=== PATIENT | female | born 1980 | race Two or more races ===

== ENCOUNTER → 2024-05-04 | Outpatient (CLI) | payer MEDICAID, SELFPAY ==
--- NOTE | 2024-05-04 13:00 | XR_ITS ---
Examination: Abdomen sonogram, complete Date and time of exam: May 04, 2024 1340 hours INDICATIONS: Intermittent epigastric pain beginning 5 years ago. Technique: Multiple real-time grayscale transabdominal sonographic images of the abdomen have been obtained. Findings: Absent gallbladder Common bile duct 0.9 cm no stones Pancreatic head 2.4 cm Aorta not enlarged Liver 19.9 cm fatty infiltration no focal liver lesions Normal hepatopedal portal venous flow Patent IVC Right kidney 11.9 x 5.8 x 6.7 cm cortex 1.8 cm Left kidney 11.7 x 5.6 x 7.2 cm cortex 1.8 cm Mild bilateral renal parenchymal scar formation Spleen 11.8 cm IMPRESSION: No common bile duct stones Moderate hepatomegaly fatty liver
== END | disposition home or self-care (01) ==
PROVIDERS: PCP Nurse Practitioner Family; Referring Provider Nurse Practitioner Family; Visit Provider Nurse Practitioner Family
DX: K76.0 Fatty (change of) liver, not elsewhere classified (principal)
CPT/HCPCS: 76700

== ENCOUNTER 2024-07-25 14:28 | Emergency (ER) | payer MEDICAID, SELFPAY ==
[2024-07-25 14:32] VITALS: BMI 41.9
[2024-07-25 14:50] VITALS: BP 153/92; PULSE 64; RESP 20; TEMP 36.7; O2SAT 96
--- NOTE | 2024-07-25 14:59 | XR_ITS ---
Examination: Lumbar spine 3 views Technique one AP lateral coned lateral lower lumbar spine 3 views Exam date and time: July 25, 2024 1522 hrs. Indications: Patient fell 2 days ago with injury to the lower back, lower back pain radiating down the right leg. Findings: No acute lumbar fracture Moderate to advanced disc narrowing L5-S1 No spondylolisthesis Impression: No acute lumbar fracture
[2024-07-25] MEDS: KETOROLAC INJ 60 MG/2 ML VIAL 30 MG IM (15:05)
--- NOTE | 2024-07-25 16:32 | PD.EDBACK ---
ED Back Injury Pain RME/HPI General Chief Complaint: Back Pain/Injury Stated Complaint: BACK PAIN RADIATING DOWN RIGHT LEG AFTER FALL Time Seen by Provider: 07/25/24 14:46 Source: patient Arrival date/time: 07/25/24 14:28 44-year-old female with a history of type 2 diabetes, hypertension presents to the emergency room with a chief complaint of lower back pain that radiates down her right leg Mode of arrival: ambulatory Limitations: no limitations Related Data Home Medications ?Medication ?Instructions ?Recorded ?Confirmed amlodipine 10 mg tablet 10 mg PO QDAY 06/14/22 08/21/22 atorvastatin 20 mg tablet 20 mg PO QDAY 06/14/22 08/21/22 diclofenac sodium 1 % topical gel 4 g topical QID 06/14/22 08/21/22 docusate sodium 100 mg capsule 100 mg PO BID PRN Constipation 06/14/22 08/21/22 ferrous sulfate 325 mg (65 mg 325 mg PO QDAY 06/14/22 08/21/22 iron) tablet hydrochlorothiazide 25 mg tablet 25 mg PO QDAY 06/14/22 08/21/22 hydrocodone 5 mg-acetaminophen 325 1 tab PO Q6H PRN Pain 06/14/22 08/21/22 mg tablet metoprolol succinate 100 mg 100 mg PO QDAY 06/14/22 08/21/22 tablet,extended release 24 hr nitroglycerin 0.4 mg sublingual 0.4 mg buccal Q5MIN PRN Chest Pain 06/14/22 08/21/22 tablet omeprazole 40 mg capsule,delayed 40 mg PO QAM 06/14/22 08/21/22 release ondansetron HCl 4 mg tablet 4 mg PO TID PRN Nausea 06/14/22 08/21/22 semaglutide 1 mg/dose (4 mg/3 mL) 1 mg subcut QWEEK 06/14/22 08/21/22 subcutaneous pen injector (Ozempic) aspirin 81 mg tablet,delayed 81 mg PO QDAY 08/21/22 08/21/22 release cyclobenzaprine 10 mg tablet 10 mg PO HS 08/21/22 08/21/22 potassium chloride 20 mEq 20 meq PO QDAY 08/21/22 08/21/22 tablet,extended release Previous Rx's ?Medication ?Instructions ?Recorded clonidine HCl 0.1 mg tablet 0.1 mg PO QDAY #30 tabs 03/18/21 hydrocodone 5 mg-acetaminophen 325 1 tab PO BID PRN pain #10 tabs 07/25/24 mg tablet ibuprofen 600 mg tablet 600 mg PO Q8H PRN fever or pain 07/25/24 #20 tabs Allergies Allergy/AdvReac Type Severity Reaction Status Date / Time metformin Allergy Dizziness Verified 07/25/24 14:31 Penicillins Allergy Verified 07/25/24 14:31 semaglutide (From Rybelsus) Allergy Verified 07/25/24 14:31 Review of Systems Review of Systems Systems Reviewed: All systems reviewed, normal except as documented Constitutional Constitutional: Reports system reviewed and no additional complaints, except as documented, Denies fatigue, Denies fever(s), Denies headache(s) and Denies weakness Eyes Eyes: Reports system reviewed and no additional complaints, except as documented, Denies blurry vision and Denies change in vision ENT Ears, Nose, Mouth, and Throat: Reports system reviewed and no additional complaints, except as documented, Denies otalgia, Denies headache(s), Denies nasal congestion, Denies throat swelling and Denies vertigo Cardiovascular Cardiovascular: Reports system reviewed and no additional complaints, except as documented, Denies chest pain, Denies dyspnea and Denies dyspnea on exertion Respiratory Respiratory: Reports system reviewed and no additional complaints, except as documented, Denies chest congestion, Denies cough, Denies dyspnea, Denies dyspnea on exertion and Denies wheezing Gastrointestinal Gastrointestinal: Reports system reviewed and no additional complaints, except as documented, Denies abdominal pain, Denies cramping, Denies nausea and Denies vomiting Genitourinary Genitourinary: Reports system reviewed and no additional complaints, except as documented Musculoskeletal Musculoskeletal: Reports system reviewed and no additional complaints, except as documented, Reports arthralgias and Denies back pain Integumentary/Breasts Skin/Breast: Reports system reviewed and no additional complaints, except as documented and Denies wounds Neurologic Neurologic: Reports system reviewed and no additional complaints, except as documented, Denies confusion, Denies headache(s), Denies lack of coordination, Denies vertigo and Denies weakness Psychiatric Psychiatric: Reports system reviewed and no additional complaints, except as documented, Denies anxiety, Denies confusion, Denies depression, Denies paranoia, Denies suicidal ideation and Denies tactile hallucinations Endocrine Endocrine: Reports system reviewed and no additional complaints, except as documented and Denies fatigue Hematologic/Lymphatic Hematologic/Lymphatic: Reports system reviewed and no additional complaints, except as documented and Denies lymphadenopathy Allergic/Immunologic Allergic/Immunologic: Reports system reviewed and no additional complaints, except as documented, Denies throat swelling, Denies urticaria and Denies wheezing Past Medical History Past Medical History CARDIAC: Positive Cardiac Disorders, Angina, Hypercholesterolemia, Edema and Hypertension; Negative Congestive Heart Failure RESPIRATORY: Negative Chronic Obstructive Pulmonary Disease (COPD) or Asthma GASTROINTESTINAL: Positive Gastrointestinal Disorders, Gall Bladder Disease, Ulcer and Gastroesophageal Reflux Disease GENITOURINARY: Positive Genitourinary Disorders and Kidney Stones; Negative Renal Disease MUSCULOSKELETAL: Positive Musculoskeletal Disorders ENDOCRINE: Positive Endocrine Disorders and Diabetes Mellitus Type 2; Negative Diabetes Mellitus Type 1 HEMATOLOGIC: Negative Sickle Cell Disease PSYCHO/SOCIAL: Positive Bipolar Disorder, Depression and Anxiety Surgical History SURGICAL: Positive Abdominal Surgery and Section Social History SMOKING STATUS: Former smoker ED Exam General Limitations: Present no limitations General appearance: Present alert and in no apparent distress Head Head exam: Present atraumatic Eye Eye exam: Present normal appearance, PERRL and EOMI ENT ENT exam: Present normal exam, normal oropharynx and mucous membranes moist Neck Neck exam: Present normal inspection, full ROM and trachea midline Chest Chest inspection: Present normal inspection and symmetric chest wall rise Respiratory Respiratory exam: Present normal lung sounds bilaterally Cardiovascular Cardiovascular exam: Present regular rate, normal rhythm and normal heart sounds Abdominal Exam Abdominal exam: Present soft and normal bowel sounds Extremities Exam Extremities exam: Present normal inspection and full ROM Expanded Lower Extremity Exam Hip/Pelvis exam: Present normal inspection Upper leg exam: Present normal inspection Knee exam: Present normal inspection Lower leg exam: Present normal inspection Ankle exam: Present normal inspection Foot/toe exam: Present normal inspection Back Exam Back exam: Present normal inspection, full ROM, vertebral tenderness and sciatic notch tenderness (R) Neurological Exam Neurological exam: Present alert, oriented X3 and CN II-XII intact Psychiatric Psychiatric exam: Present normal affect and normal mood Skin Skin exam: Present warm, dry, intact and normal color Course Quality Measures none Orders Category Date Time Status XR lumbar spine 2-3V Stat Exams 07/25/24 14:59 Completed Ketorolac Inj [Toradol Inj] Med 07/25/24 14:59 Discontinued 30 mg IM X1 ONE Vital Signs Vital signs: Vital Signs Temperature 98.0 F 07/25/24 14:50 Pulse Rate 64 02/16/25 14:50 Respiratory Rate 20 07/25/24 14:50 Blood Pressure 153/92 H 07/25/24 14:50 Pulse Oximetry (%) 96 07/25/24 14:50 Oxygen Delivery Method Room Air 07/25/24 14:50 Back Pain / Injury MDM Narrative MDM Narrative:: 44-year-old female with a history of type 2 diabetes, hypertension presents to the emergency room with a chief complaint of lower back pain that radiates down her right leg Patient is hemodynamically stable and in no apparent distress Physical examination shows right sciatic notch tenderness with pain that begins in the lumbar area of her spine and radiates down her right leg. There is no saddle anesthesia, numbness to the lower extremities, or loss of bowel or bladder function. The findings are consistent with sciatica Lumbar x-ray shows no acute fracture but does show some advanced disc narrowing from L5-S1 Patient was discharged and educated to follow-up with primary care provider and return to the emergency room for any evidence of worsening signs or symptoms Patient data External records reviewed:: [facility] previous records Clinical information provided by:: patient Social determinants that could affect healthcare access:: none Patient has the following chronic illnesses:: No chronic illness How is presenting disease/condition affected by chronic disease/condition?: no chronic disease Evaluation data The following diagnostics were reviewed and interpreted by me:: lab results and radiology exam(s) Lab and/or radiology exams considered but not ordered:: Labs and radiology exams considered and ordered Interpretation Summary: Lumbar [id number]: No acute lumbar fracture Moderate to advanced disc narrowing L5-S1 No spondylolisthesis Impression: No acute lumbar fracture Medications / Prescriptions Medications or Prescriptions considered but not ordered:: Medication given Medication administrations:: Medication Administration History Discontinued Medications Ketorolac Tromethamine (Ketorolac Inj 60 Mg/2 Ml Vial) 30 mg IM X1 ONE Stop: 07/25/24 15:00 Last Admin: 07/25/24 15:05 Dose: 30 mg Documented By: KF Medication given Consultations Consultation(s) initiated? (list below): No Diagnosis Differential diagnosis back pain/injury: lumbar radiculopathy, sciatica, strain of lumbar region, renal colic, thoracic back pain, discitis and other Most likely diagnosis given after review of the tests above:: Sciatica Admission Indicated Admission indicated?: not indicated Admission Request Was there a request for admission?: No Disposition Plan Disposition Plan: Discharge Discharge Attestation Discharge Attestation: The patient and all family members were given an opportunity to ask questions and understood the discharge instructions. Discharge instructions specifically effects, indications for sooner follow up or return to the emergency department, and the expected course of current diagnosis. Patient condition: Stable Discharge Plan Plan Patient Disposition: HOME (Self Care) Disposition Comment: Stable Prescriptions/Referrals Prescriptions/Med Rec: New ibuprofen 600 mg tablet 600 mg PO Q8H PRN (Reason: fever or pain) Qty: 20 0RF hydrocodone-acetaminophen 5-325 mg tablet 1 tab PO BID MDD 10mg PRN (Reason: pain) Qty: 10 0RF No Action clonidine HCl 0.1 mg tablet 0.1 mg PO QDAY Qty: 30 0RF cyclobenzaprine 10 mg Tablet 10 mg PO HS aspirin 81 mg Tablet,Delayed Release (Dr/Ec) 81 mg PO QDAY potassium chloride 20 mEq Tablet Extended Release 20 meq PO QDAY atorvastatin 20 mg tablet 20 mg PO QDAY Patient Comments: TAKE 1 TABLET BY MOUTH EVERY DAY hydrocodone-acetaminophen 5-325 mg tablet 1 tab PO Q6H PRN (Reason: Pain) Patient Comments: TAKE 1 TABLET BY MOUTH EVERY 6 HOURS NEEDED ondansetron HCl 4 mg tablet 4 mg PO TID PRN (Reason: Nausea) Patient Comments: TAKE 1 TABLET BY MOUTH 3 TIMES A DAY NEEDED FOR NAUSEA omeprazole 40 mg capsule,delayed release(DR/EC) 40 mg PO QAM Patient Comments: TAKE 1 CAPSULE BY MOUTH ONCE A DAY (IN THE MORNING) ferrous sulfate 325 mg (65 mg iron) tablet 325 mg PO QDAY Patient Comments: TAKE 1 TABLET BY MOUTH EVERY DAY WITH ORANGE JUICE. DO NOT GIVE WITH CAFFEINE Rx Instructions: TAKE 1 TABLET BY MOUTH EVERY DAY WITH ORANGE JUICE. DO NOT GIVE WITH CAFFEINE nitroglycerin 0.4 mg tablet, sublingual 0.4 mg buccal Q5MIN MDD 3 tablets, 1.2mg PRN (Reason: Chest Pain) Patient Comments: PLACE 1 TABLET UNDER TONGUE EVERY 5 MINS, UP TO 3 DOSES NEEDED FOR CHEST PAIN docusate sodium 100 mg capsule 100 mg PO BID PRN (Reason: Constipation) Patient Comments: TAKE 1 CAPSULE BY MOUTH TWICE A DAY NEEDED diclofenac sodium 1 % gel 4 g TOPICAL QID Patient Comments: APPLY 4 GRAMS TOPICALLY TO AFFECTED AREA 4 TIMES PER DAY metoprolol succinate 100 mg Tablet Extended Release 24 Hr 100 mg PO QDAY amlodipine 10 mg Tablet 10 mg PO QDAY hydrochlorothiazide 25 mg Tablet 25 mg PO QDAY Ozempic 1 mg/dose (4 mg/3 mL) Pen Injector 1 mg SUBCUT QWEEK Referrals: Lucina Mitchell, LAY OUT FORMER [Primary Care Provider] - In 1 week Problem List Clinical Impression: Sciatica Patient/Caregiver Discharge Instructions Education Materials: ED Sciatica Additional Instructions: Please follow-up with your primary care provider in the next 24 to 48 hours. Your lumbar x-ray was completed and was negative for any acute fracture or dislocation. Please follow-up with your primary care provider if your symptoms continue. For any evidence of worsening signs or symptoms return to the emergency room immediately Print Language: Guyanese Stand Alone Forms: Misty Award Info., Patient Portal Info Letter PA/WING COVERER Supervising Physician PA/PRAVIN Supervising Physician:
== END 2024-07-25 18:00 | disposition home or self-care (01) ==
PROVIDERS: Emergency Provider Emergency Medicine; PCP Nurse Practitioner Family
DX: M48.07 Spinal stenosis, lumbosacral region (principal); E11.9 Type 2 diabetes mellitus without complications; I10 Essential (primary) hypertension; Z87.891 Personal history of nicotine dependence; Z79.85 Long-term (current) use of injectable non-insulin antidiabetic drugs
CPT/HCPCS: 72100; 96372; 99283; J1885

== ENCOUNTER → 2024-12-01 | Outpatient (CLI) | payer MEDICARE, MEDICAID, SELFPAY ==
--- NOTE | 2024-12-01 14:30 | XR_ITS ---
Examination: Screening digital mammography, bilateral Computer aided detection 3-D breast Tomosynthesis, bilateral Date and time of exam: December 01, 2024 1429 hours Compared to mammograms dating to September 27, 2022 Indication: Screening Technique: Nonmagnified MLO, CC views of the breasts to been obtained, reconstructed from 3-D Tomosynthesis images. R2 computer aided detection program utilized for evaluation of suspicious masses and/or abnormal calcifications. 3-D Tomosynthesis images obtained. Findings: Scattered areas of fibroglandular density. Benign calcifications. No interval suspicious masses Impression: BI-RADS category II: Benign Findings. Recommend 1 year follow-up mammogram.
== END | disposition home or self-care (01) ==
PROVIDERS: PCP Obstetrics & Gynecology; Referring Provider Obstetrics & Gynecology; Visit Provider Obstetrics & Gynecology
DX: Z12.31 Encounter for screening mammogram for malignant neoplasm of breast (principal); R92.323 Mammographic fibroglandular density, bilateral breasts; R92.1 Mammographic calcification found on diagnostic imaging of breast
CPT/HCPCS: 77063; 77067

== ENCOUNTER 2025-01-15 17:52 | Emergency (ER) | payer MEDICARE, MEDICAID, SELFPAY ==
[2025-01-15 17:55] VITALS: BMI 41.9
--- NOTE | 2025-01-15 17:58 | EKG_ITS ---
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
[2025-01-15 18:03] VITALS: BP 155/99; PULSE 106; RESP 19; TEMP 36.7; O2SAT 95
[2025-01-15] MEDS: KETOROLAC INJ 60 MG/2 ML VIAL 30 MG IM (19:32)
[2025-01-15 19:33] VITALS: BP 155/99; PULSE 106
[2025-01-15] MEDS: METOPROLOL SUCCINATE XL 25 MG TABCR PO (19:33)
[2025-01-15 19:48] LABS: Collection Type, Urine Clean Catch
[2025-01-15 19:52] LABS: HCG Qualitative,Urine Negative
[2025-01-15 19:55] LABS: Bacteria,Urine 1+; Bilirubin,Urine Negative (Negative); Blood,Urine Negative (Negative); Clarity,Urine Clear (Clear/Hazy); Color,Urine Colorless (Lt Yel-Yel); Culture Indicated,Urine Yes; Glucose, Urine 4+ (Negative); Ketones,Urine Negative (Negative); Leukocyte Esterase,Urine Negative (Negative); Nitrite,Urine Negative (Negative); PH,Urine 6.5 (5.0-7.0); Protein,Urine Negative (Neg - Trace); RBC,Urine 1 /hpf (0-3); Specific Gravity,Urine 1.014 (1.001-1.035); Squamous Epithelial Cell,Urine 3 /hpf (0-5); Urobilinogen,Urine Negative mg/dL (0.0-1.0); WBC,Urine 1 /hpf (0-5)
[2025-01-15 20:06] LABS: Basophils # (Auto) 0.1 Thou/mm3 (0.0-0.2); Basophils % (Auto) 0 % (0-2.5); Eosinophils # (Auto) 0.1 Thou/mm3 (0.0-0.5); Eosinophils % (Auto) 1 % (0-10); Hematocrit 42.0 % (36.0-46.0); Hemoglobin 13.8 g/dL (12.0-16.0); Immature Granulocytes Auto 0.05 Thou/mm3 (0.00-0.00); Lymphocytes # (Auto) 2.4 Thou/mm3 (1.0-4.8); Lymphocytes % (Auto) 21 % (10-50); Mean Corpuscular HGB Conc 32.9 g/dl (31.0-37.0); Mean Corpuscular Hemoglobin 26.7 pg (25.0-35.0); Mean Corpuscular Volume 81 fL (80-100); Monocytes # (Auto) 0.6 Thou/mm3 (0.0-0.8); Monocytes % (Auto) 5 % (0-12); Neutrophils # (Auto) 8.2 Thou/mm3 (1.8-7.7); Neutrophils % (Auto) 72 % (37-80); Nucleated Red Blood Cell # 0.00 Thou/mm3 (0.00-0.00); Nucleated Red Blood Cell % 0 /100 WBC (0); Platelet Count 259 Thou/mm3 (140-440); RDW Standard Deviation 41.7 fL (36.4-46.3); Red Blood Count 5.17 Miln/mm3 (4.00-5.20); White Blood Count 11.4 Thou/mm3 (3.6-11.0)
[2025-01-15 20:36] LABS: Alanine Aminotransferase 10 U/L (10-49); Albumin, Serum 4.2 gm/dL (3.5-5.0); Albumin/Globulin Ratio 1.5 (1.2-2.2); Alkaline Phosphatase 73 U/L (46-116); Amylase 213 U/L (30-118); Anion Gap 10 (7-16); Aspartate Amino Transferase 17 U/L (0-34); BUN/Creatinine Ratio 16 Ratio (12-20); Bilirubin,Total 0.4 mg/dL (0.3-1.2); Blood Urea Nitrogen 16 mg/dL (9-23); C-Reactive Protein 1.4 mg/dL (0.0-0.9); Calcium 9.5 mg/dL (8.3-10.6); Calcium (Corrected) 9.5 mg/dL (8.5-10.1); Carbon Dioxide 25.1 mMol/L (20.0-31.0); Chloride 103 mMol/L (98-107); Creatinine (Component) 1.0 mg/dL (0.6-1.3); Estimated Creatinine Clearance 94.8 mL/min (>60); Globulin 2.8 gm/dL (2.3-3.5); Glucose 154 mg/dL (74-106); Lipase 143 U/L (12-53); Osmolality,Calculated 279 (275-295); Potassium 3.0 mMol/L (3.4-5.1); Sodium 138 mMol/L (136-145); Total Protein 7.0 gm/dL (5.7-8.2); eGFR > 60 See Note
[2025-01-15 22:08] VITALS: BP 154/91; PULSE 88; RESP 20; TEMP 36.9; O2SAT 95
--- NOTE | 2025-01-15 22:16 | XR_ITS ---
Examination: Abdomen sonogram, Limited Date and time of exam: January 15, 2025, 10:32 PM INDICATIONS: Abdominal pain several weeks Technique: Real-time rogers scale transabdominal sonographic images of the upper abdomen obtained. Findings: Gallbladder Normal common bile duct 0.2 cm Pancreatic head 3.1 cm Liver 19.0 cm fatty infiltration no focal liver lesions Normal hepatopedal portal venous flow Patent IVC IMPRESSION: Normal common bile duct Moderate hepatomegaly fatty infiltration
--- NOTE | 2025-01-16 00:11 | PD.EDABDPN ---
ED Abdominal Pain RME/HPI General Chief Complaint: Abdominal Pain Stated complaint: LIGHTHEADED, ABD PAIN, HEART PALPITATION Time seen by provider: 01/15/25 18:28 Arrival date/time: 01/15/25 17:52 RME / HPI RME / HPI narrative: 45-year-old female presents to the ED with a complaint of elevated blood pressure with dizziness and headache. She also states that she just feels bad in general and knows that something is wrong. She has abdominal pain and was told she has an enlarged liver. She states she has many medical problems and has been feeling bad for several years. She ran out of her metoprolol 3 days ago and does not have an appointment with her PCP until . Related Data Home Medications ?Medication ?Instructions ?Recorded ?Confirmed amlodipine 10 mg tablet 10 mg PO QDAY 06/14/22 08/21/22 atorvastatin 20 mg tablet 20 mg PO QDAY 06/14/22 08/21/22 diclofenac sodium 1 % topical gel 4 g topical QID 06/14/22 08/21/22 docusate sodium 100 mg capsule 100 mg PO BID PRN Constipation 06/14/22 08/21/22 ferrous sulfate 325 mg (65 mg 325 mg PO QDAY 06/14/22 08/21/22 iron) tablet hydrochlorothiazide 25 mg tablet 25 mg PO QDAY 06/14/22 08/21/22 hydrocodone 5 mg-acetaminophen 325 1 tab PO Q6H PRN Pain 06/14/22 08/21/22 mg tablet metoprolol succinate 100 mg 100 mg PO QDAY 06/14/22 08/21/22 tablet,extended release 24 hr nitroglycerin 0.4 mg sublingual 0.4 mg buccal Q5MIN PRN Chest Pain 06/14/22 08/21/22 tablet omeprazole 40 mg capsule,delayed 40 mg PO QAM 06/14/22 08/21/22 release ondansetron HCl 4 mg tablet 4 mg PO TID PRN Nausea 06/14/22 08/21/22 semaglutide 1 mg/dose (4 mg/3 mL) 1 mg subcut QWEEK 06/14/22 08/21/22 subcutaneous pen injector (Ozempic) aspirin 81 mg tablet,delayed 81 mg PO QDAY 08/21/22 08/21/22 release cyclobenzaprine 10 mg tablet 10 mg PO HS 08/21/22 08/21/22 potassium chloride 20 mEq 20 meq PO QDAY 08/21/22 08/21/22 tablet,extended release Previous Rx's ?Medication ?Instructions ?Recorded clonidine HCl 0.1 mg tablet 0.1 mg PO QDAY #30 tabs 03/18/21 hydrocodone 5 mg-acetaminophen 325 1 tab PO BID PRN pain #10 tabs 07/25/24 mg tablet ibuprofen 600 mg tablet 600 mg PO Q8H PRN fever or pain 07/25/24 #20 tabs metoprolol succinate 100 mg 100 mg PO QDAY #30 tabs 01/16/25 tablet,extended release 24 hr potassium chloride 20 mEq 20 meq PO QDAY #5 tabs 01/16/25 tablet,extended release Allergies Allergy/AdvReac Type Severity Reaction Status Date / Time metformin Allergy Dizziness Verified 01/15/25 17:55 Penicillins Allergy Verified 01/15/25 17:55 semaglutide (From Rybelsus) Allergy Verified 01/15/25 17:55 Review of Systems Review of Systems Systems Reviewed: All systems reviewed, normal except as documented Past Medical History Past Medical History CARDIAC: Positive Cardiac Disorders, Angina, Hypercholesterolemia, Edema and Hypertension; Negative Congestive Heart Failure RESPIRATORY: Negative Chronic Obstructive Pulmonary Disease (COPD) or Asthma GASTROINTESTINAL: Positive Gastrointestinal Disorders, Gall Bladder Disease, Ulcer and Gastroesophageal Reflux Disease GENITOURINARY: Positive Genitourinary Disorders and Kidney Stones; Negative Renal Disease MUSCULOSKELETAL: Positive Musculoskeletal Disorders ENDOCRINE: Positive Endocrine Disorders and Diabetes Mellitus Type 2; Negative Diabetes Mellitus Type 1 HEMATOLOGIC: Negative Sickle Cell Disease PSYCHO/SOCIAL: Positive Bipolar Disorder, Depression and Anxiety Surgical History SURGICAL: Positive Abdominal Surgery and Section Social History SMOKING STATUS: Never smoker ED Exam Narrative Physical exam: A&O, afebrile and non-toxic appearing 45-year-old female, appears anxious. Lung sounds are clear, mild tachycardia at 106 with RR, blood pressure is mildly elevated at 155/99. Abdomen is soft with right upper quadrant and epigastric tenderness. Non-distended. Moves all extremities well. Course Course Course Narrative: Patient was given Toradol 30 mg IM and metoprolol succinate 25 mg p.o. CBC reveals minimally elevated white count of 11.4 with normal H&H and normal platelets. ANC is minimally elevated at 8.2. CRP is mildly elevated at 1.4. CMP reveals normal electrolytes with the exception of potassium of 3.0 and glucose of 154. Renal function and liver functions are normal. Total bilirubin is normal at 0.4. Amylase and lipase are elevated at 213/143. Urinalysis reveals clear colorless urine with a specific gravity of 1.014 with 4+ glucose, negative ketones, negative nitrates and negative leukocyte esterase, 1 RBC, 1 WBC, 3 epithelial cells and 1+ bacteria. Urine hCG is negative. Patient was given potassium chloride 40 mEq p.o. x 1 EKG reveals mild sinus tachycardia at [address] elevation. Abdominal ultrasound reveals: Normal common bile duct 0.2 cm. Pancreatic head 3.1 cm. Liver 19.0 cm fatty infiltration no focal liver lesions. Normal hepatopedal portal venous flow. Patent IVC Patient's blood initial blood pressure was 155/99 with a pulse of 106. Second blood pressure after metoprolol given was 154/91 with a pulse of 88. Patient states she knows her blood pressure is still very high and she feels dizzy. Repeat blood pressure is now 138/103 with a pulse of 90. Discussed case with Dr. Alexandra, likely Pancreatitis 2/2 Semaglutide (Mounjaro) weekly injections. (Last injection on ). Quality Measures none Orders Category Date Time Status Bedside COVID-19 Antigen Test NOW Care 01/15/25 19:06 Active Bedside Influenza A&B Antigen Test NOW Care 01/15/25 19:06 Completed EKG (ED ONLY) *Do not use* NOW Care 01/15/25 17:58 Completed EKG (ED Only) Stat Exams 01/15/25 17:58 Draft US abdomen limited Stat Exams 01/15/25 22:16 Completed Amylase Stat Lab 01/15/25 19:35 Completed CBC Stat Lab 01/15/25 19:35 Completed CMP [Comprehensive Metabolic Panel] Stat Lab 01/15/25 19:35 Completed CRP [C-Reactive Protein] Stat Lab 01/15/25 19:35 Completed Drug Screen,Urine Stat Lab 01/16/25 00:00 Received HCG Qualitative,Urine Stat Lab 01/15/25 19:30 Completed Lipase Stat Lab 01/15/25 19:35 Completed Urinalysis, C/S if Indicated Stat Lab 01/15/25 19:30 Completed Urine Culture Stat Lab 01/15/25 19:30 Received Diazepam [Valium] Med 01/16/25 00:56 Discontinued 5 mg PO X1 ONE HYDROcodone*/APAP 7.5/325 [[place] 7.5/325] Med 01/16/25 00:56 Discontinued 1 tab PO X1 ONE Ketorolac Inj [Toradol Inj] Med 01/15/25 19:04 Discontinued 30 mg IM X1 ONE Metoprolol Succinate Xl [Toprol Xl] Med 01/15/25 19:04 Discontinued 25 mg PO X1 ONE Potassium Chloride [K-Dur] Med 01/15/25 22:18 Discontinued 40 meq PO X1 ONE Vital Signs Vital signs: Vital Signs Temperature 98.0 F 01/15/25 18:03 Pulse Rate 106 H 01/15/25 18:03 Respiratory Rate 19 01/15/25 18:03 Blood Pressure 155/99 H 01/15/25 18:03 Pulse Oximetry (%) 95 01/15/25 18:03 Oxygen Delivery Method Room Air 01/15/25 18:03 Abdominal Pain MDM MDM Narrative MDM Narrative:: Symptoms, exam and diagnostic studies are consistent with: Pancreatitis Likely Secondary to Mounjaro Injections. Per Attending, OK to discharge home with PCP follow-up. Patient was discharged home in stable condition. Patient/family advised to follow-up with their PCP in 24-48 hours. Encouraged to return to the ED for any new or worsening symptoms. Patient data External records reviewed:: None Clinical information provided by:: patient Social determinants that could affect healthcare access:: none Patient has the following chronic illnesses:: Diabetes, hypertension, hyperlipidemia. How is presenting disease/condition affected by chronic disease/condition?: exacerbated by Evaluation data The following diagnostics were reviewed and interpreted by me:: lab results, radiology exam(s) and EKG tracing(s) Lab and/or radiology exams considered but not ordered:: N/A Interpretation Summary: As noted above Medications / Prescriptions Medications or Prescriptions considered but not ordered:: N/A Medication administrations:: Medication Administration History Discontinued Medications Hydrocodone Bitart/Acetaminophen (Hydrocodone/Apap 7.5/325 Tablet) 1 tab PO X1 ONE Stop: 01/16/25 00:57 Last Admin: 01/16/25 01:04 Dose: 1 tab Documented By: CVL Diazepam (Diazepam 5 Mg Tablet) 5 mg PO X1 ONE Stop: 01/16/25 00:57 Last Admin: 01/16/25 01:05 Dose: 5 mg Documented By: CVL Ketorolac Tromethamine (Ketorolac Inj 60 Mg/2 Ml Vial) 30 mg IM X1 ONE Stop: 01/15/25 19:05 Last Admin: 01/15/25 19:32 Dose: 30 mg Documented By: Metoprolol Succinate (Metoprolol Succinate Xl 25 Mg Tabcr) 25 mg PO X1 ONE Stop: 01/15/25 19:05 Last Admin: 01/15/25 19:33 Dose: 25 mg Documented By: Potassium Chloride (Potassium Chloride 20 Meq Tabcr) 40 meq PO X1 ONE Stop: 01/15/25 22:19 Last Admin: 01/15/25 22:46 Dose: 40 meq Documented By: CVL As noted above Consultations Consultation(s) initiated? (list below): Yes Consultation #1 (Physician, Specialty, Details): Dr. Alexandra Diagnosis Differential diagnosis abdominal pain: abdominal pain, pancreatitis and other (Fatty liver disease, common bile duct blockage) Most likely diagnosis given after review of the tests above:: Pancreatitis secondary to Mounjaro. Admission Indicated Admission indicated?: not indicated Explain why admission is indicated or not indicated:: Patient is stable for discharge Admission Request Was there a request for admission?: No Admission Attestation Admission request attestation: N/A Disposition Plan Disposition Plan: Discharge Discharge Attestation Discharge Attestation: The patient and all family members were given an opportunity to ask questions and understood the discharge instructions. Discharge instructions specifically effects, indications for sooner follow up or return to the emergency department, and the expected course of current diagnosis. Patient condition: Stable Discharge Plan Plan Patient Disposition: HOME (Self Care) Discharge Disposition comment: Stable and improved Prescriptions/Referrals Prescriptions/Med Rec: New metoprolol succinate 100 mg tablet extended release 24 hr 100 mg PO QDAY Qty: 30 0RF potassium chloride 20 mEq tablet extended release 20 meq PO QDAY Qty: 5 0RF No Action clonidine HCl 0.1 mg tablet 0.1 mg PO QDAY Qty: 30 0RF cyclobenzaprine 10 mg Tablet 10 mg PO HS aspirin 81 mg Tablet,Delayed Release (Dr/Ec) 81 mg PO QDAY potassium chloride 20 mEq Tablet Extended Release 20 meq PO QDAY ibuprofen 600 mg tablet 600 mg PO Q8H PRN (Reason: fever or pain) Qty: 20 0RF hydrocodone-acetaminophen 5-325 mg tablet 1 tab PO BID MDD 10mg PRN (Reason: pain) Qty: 10 0RF atorvastatin 20 mg tablet 20 mg PO QDAY Patient Comments: TAKE 1 TABLET BY MOUTH EVERY DAY hydrocodone-acetaminophen 5-325 mg tablet 1 tab PO Q6H PRN (Reason: Pain) Patient Comments: TAKE 1 TABLET BY MOUTH EVERY 6 HOURS NEEDED ondansetron HCl 4 mg tablet 4 mg PO TID PRN (Reason: Nausea) Patient Comments: TAKE 1 TABLET BY MOUTH 3 TIMES A DAY NEEDED FOR NAUSEA omeprazole 40 mg capsule,delayed release(DR/EC) 40 mg PO QAM Patient Comments: TAKE 1 CAPSULE BY MOUTH ONCE A DAY (IN THE MORNING) ferrous sulfate 325 mg (65 mg iron) tablet 325 mg PO QDAY Patient Comments: TAKE 1 TABLET BY MOUTH EVERY DAY WITH ORANGE JUICE. DO NOT GIVE WITH CAFFEINE Rx Instructions: TAKE 1 TABLET BY MOUTH EVERY DAY WITH ORANGE JUICE. DO NOT GIVE WITH CAFFEINE nitroglycerin 0.4 mg tablet, sublingual 0.4 mg buccal Q5MIN MDD 3 tablets, 1.2mg PRN (Reason: Chest Pain) Patient Comments: PLACE 1 TABLET UNDER TONGUE EVERY 5 MINS, UP TO 3 DOSES NEEDED FOR CHEST PAIN docusate sodium 100 mg capsule 100 mg PO BID PRN (Reason: Constipation) Patient Comments: TAKE 1 CAPSULE BY MOUTH TWICE A DAY NEEDED diclofenac sodium 1 % gel 4 g TOPICAL QID Patient Comments: APPLY 4 GRAMS TOPICALLY TO AFFECTED AREA 4 TIMES PER DAY metoprolol succinate 100 mg Tablet Extended Release 24 Hr 100 mg PO QDAY amlodipine 10 mg Tablet 10 mg PO QDAY hydrochlorothiazide 25 mg Tablet 25 mg PO QDAY Ozempic 1 mg/dose (4 mg/3 mL) Pen Injector 1 mg SUBCUT QWEEK Referrals: Kip Parker MD [Primary Care Provider] - In 1 week Problem List Clinical Impression: Pancreatitis, Hypertension associated with diabetes, Acute hypokalemia Patient/Caregiver Discharge Instructions Education Materials: ED Hypokalemia, ED Pancreatitis, Diabetes and High Blood Pressure Additional Instructions: Stop taking Mounjaro. This is likely what is causing your pancreatitis. Also stop taking ibuprofen/Motrin as this is bad for the kidneys as well as blood pressure. Follow-up with your primary care physician in 24 to 48 hours. Return to the ED for any new or worsening symptoms. Print Language: Mongolian Stand Alone Forms: Misty Award Info., Patient Portal Info Letter PA/SILVER CLEANER Supervising Physician PA/SILVER CLEANER Supervising Physician: Dr. Alexandra
[2025-01-16 00:16] VITALS: BP 138/103; PULSE 90; RESP 20; TEMP 36.9; O2SAT 96
[2025-01-16] MEDS: HYDROcodone/APAP 7.5/325 TABLET 1 TAB PO (01:04)
[2025-01-16] MEDS: DIAZEPAM 5 MG TABLET PO (01:05)
[2025-01-16 01:29] LABS: Amphetamine/Methamp Scrn,U Negative (Negative); Barbiturate Screen,Urine Negative (Negative); Benzodiazepines Screen,Urine Negative (Negative); Benzoylecgonine Screen, Ur Negative (Negative); Fentanyl Screen,Urine Negative (Negative); Opiate Screen,Urine Negative (Negative); THC Screen,Urine Positive (Negative)
[2025-01-16 01:42] VITALS: RESP 16
== END 2025-01-16 01:44 | disposition home or self-care (01) ==
PROVIDERS: Physician Assistant; Emergency Provider Emergency Medicine; PCP Family Medicine
DX: K85.90 Acute pancreatitis without necrosis or infection, unspecified (principal); I15.2 Hypertension secondary to endocrine disorders; E11.59 Type 2 diabetes mellitus with other circulatory complications; E87.6 Hypokalemia; K76.0 Fatty (change of) liver, not elsewhere classified; R00.0 Tachycardia, unspecified; Z91.148 Patient's other noncompliance with medication regimen for other reason; Z79.85 Long-term (current) use of injectable non-insulin antidiabetic drugs
CPT/HCPCS: 36415; 76705; 80053; 80307; 81001; 81025; 82150; 83690; 85025; 86140; 87086; 87400; 87811; 93005; 96372; 99283; J1885; A9270

== ENCOUNTER → 2025-04-25 | Outpatient (CLI) | payer MEDICARE, MEDICAID, SELFPAY ==
--- NOTE | 2025-04-25 14:15 | XR_ITS ---
Examination: MRI lumbar spine without contrast Date and time of exam: April 25, 2025, 1502 hours, comparison September 15, 2020 INDICATIONS: Lower back pain 10 years worse the last year Technique: Multiple MRI axial and sagittal sections lumbar spine. Sagittal T2-weighted images, TR 3500, TE 118 T1 weighted transverse sections, TR 688 T8.5, T2-weighted sagittal sections T1 weighted sagittal sections TR 621, TE 30 T2 axial sections, TR 4, 190, TE 84. Findings: Adequate alignment lumbar vertebral bodies on the lateral view Moderate disc narrowing L5-S1 with reactive bony endplate changes Disc desiccation lower 3 lumbar levels No spondylolisthesis L5-S1 large, 10 mm, extruded central left paracentral disc extending to the left foraminal region with mild left L5 ganglionic compression The disc also extends to the right foraminal region with mild right L5 ganglionic compression L4-L5 5 mm central lumbar disc bulge L3-L4 4 mm central lumbar disc bulge More cephalad levels unremarkable IMPRESSION: L5-S1 large, 10 mm extruded central left paracentral disc extending to the bilateral foraminal regions with mild bilateral L5 ganglionic compression L4-L5 5 mm central lumbar disc bulge L3-L4 4 mm central lumbar disc bulge
== END | disposition home or self-care (01) ==
PROVIDERS: PCP Family Medicine; Referring Provider Nurse Practitioner Family; Visit Provider Nurse Practitioner Family
DX: M51.17 Intervertebral disc disorders with radiculopathy, lumbosacral region (principal); G95.20 Unspecified cord compression; M51.370 Other intervertebral disc degeneration, lumbosacral region with discogenic back pain only; M51.360 Other intervertebral disc degeneration, lumbar region with discogenic back pain only
CPT/HCPCS: 72148